=== PATIENT | male | born 1945 | race Caucasian/White ===

== ENCOUNTER 2016-10-26 15:35 | Emergency (ER) | payer OTHER ==
[~2016-10-26] VITALS: Ht 182.9 cm; Wt 105.0 kg
[~2016-10-26 15:35] MED LIST: ALBU8I INH; ALLO300T2 PO; ALPR0.25 PO; AMLO5TAB22 PO; BISA5TAB PO; COLC1TAB7 PO; DUONI NEB; EZET10 PO; FIORIC PO; FOLI1 PO; GABA300C3 PO; GLIP5 PO; HYDR200T3 PO; HYDRO2.5%T TOP; HYOS0.129 PO; IPRAAER INH; LEVO50TA4 PO; METH2.5 PO; MORP60TA20 PO; MULT1TAB PO; PRED50TA PO; PRED5SOL PO; PROP60TA2 PO; RANI150 PO; SERT-129 PO; SYMB160A INH; TAMS0.4C67 PO; VITA100020 IM; WARF1TAB PO; WARF7.5T4 PO; WELL150T PO; ZITH250T PO; ZOLP10TA3 PO
[2016-10-26 15:38] VITALS: BP 147/79; PULSE 70; RESP 24; TEMP 99.1; O2SAT 95
--- NOTE | 2016-10-26 15:54 | PD ---
HPI Chief Complaint: Respiratory Distress Time Seen by Provider: 15:47 Travel History International Travel<30 days: No Contact w/Intl Traveler<30days: No Traveled to known affect area: No History of Present Illness HPI 71yo M with PMH of bladder CA s/p resection, DM, PE on coumadin, COPD, sleep apnea on BIPAP at night presents to the ED with c/o sob and productive cough for 7 days. Denies any fever, chest pain, n/v, abdominal pain, new focal weakness or numbness. Pt was sent from the [place] [facility] for further evaluation. Pt takes symbicort, proventil for COPD but did not take any today. PFSH Past Medical History Hx Anticoagulant Therapy: Yes (VARIABLE CUMIDIN DAILY ) Arthritis: Yes (RHEUMATOID) Asthma: No Autoimmune Disease: Yes ( RHEM. ARTHRITIS) Blood Disorders: No Anxiety: Yes (PTSD) Depression: No Heart Rhythm Problems: No Cancer: Yes (Bladder Cancer, NASAL CANCER) Cardiac Catheterization: No Cardiovascular Problems: Yes High Cholesterol: Yes Chemotherapy: No Chest Pain: No Congestive Heart Failure: No COPD: Yes Coronary Artery Disease: No Diabetes: Yes Diminished Hearing: No Endocrine: Yes Gastrointestinal Disorders: Yes (chrones disease, ulcer) GERD: Yes Gout: Yes Genitourinary: Yes (BPH, bladder cancer, low testosterone) Headaches: No Hepatitis: No Hiatal Hernia: No Hypertension: Yes Immune Disorder: Yes (RA) Implanted Vascular Access Dvce: Yes Kidney Stones: No Musculoskeletal: Yes (chronic neck and back pain, spinal stenosis, gout, RA) Neurologic: Yes (tremors) Psychiatric: Yes Reproductive: No Respiratory: Yes (COPD) Myocardial Infarction: No Radiation Therapy: No Renal Failure: No Sickle Cell Disease: No Sleep Apnea: Yes Thyroid Disease: Yes (Hypothyroidism) Ulcer: Yes (GASTRIC) Past Surgical History Abdominal Surgery: Yes (fistula from stomach to colon- 1986; REPAIR RECTAL TEAR ,UMBILICAL HERNIA) AICD: No Arteriovenous Shunt: No Body Medical Devices: TITANIUM PLATE LEFT WRIST, UPPER DENTURE Cardiac Surgery: No Coronary Artery Bypass Graft: No Ear Surgery: No Endocrine Surgery: No Eye Surgery: No Genitourinary Surgery: Yes (CYSTO-TURBT- X 2) Gynecologic Surgery: No Insulin Pump: No Joint Replacement: No Neurologic Surgery: No Oral Surgery: No Pacemaker: No Thoracic Surgery: No Other Surgery: Yes (LIPOMA FROM BACK) Social History Alcohol Use: No Tobacco Use: Yes (4 CIGS/DAY) Substance Use: No Allergies-Medications (Allergen,Severity, Reaction): Coded Allergies: Sulfa (Verified Allergy, Severe, RASH/HIVES, 09/28/15) Reported Meds & Prescriptions Reported Meds & Active Scripts Active Reported Dicyclomine (Dicyclomine HCl) 20 Mg Tab 20 Mg PO TID Dicyclomine (Dicyclomine HCl) 10 Mg Cap 10 Mg PO QID Coumadin (Warfarin) 10 Mg Tab 10 Mg PO DAILY Coumadin (Warfarin) 5 Mg Tab 5 Mg PO DAILY Topamax (Topiramate) 50 Mg Tab 50 Mg PO BID Tamsulosin (Tamsulosin HCl) 0.4 Mg Cap 0.4 Mg PO HS Sertraline (Sertraline HCl) 100 Mg Tab 100 Mg PO DAILY Propranolol (Propranolol HCl) 80 Mg Tab 80 Mg PO Q12HR Omeprazole 20 Mg Cap Multi Vitamin (Multiple Vitamin) 1 Tab Tab 1 Tab PO DAILY Morphine Sulfate CR (Morphine Sulfate) 15 Mg Tab Methotrexate 2.5 Mg Tab 2.5 Mg PO Q7D Asacol HD (Mesalamine) 800 Mg Tab 1,600 Mg PO TID Swallow whole. Take on an empty stomach. Claritin (Loratadine) 10 Mg Cap 10 Mg PO DAILY Synthroid (Levothyroxine Sodium) 50 Mcg Tab 50 Mcg PO DAILY Plaquenil (Hydroxychloroquine Sulfate) 200 Mg Tab 200 Mg PO BID Take with food Glipizide 5 Mg Tab 5 Mg PO BIDAC Take 30 minutes before a meal Gabapentin 800 Mg Tab 800 Mg PO TID Gabapentin 600 Mg Tab 600 Mg PO BID Zetia (Ezetimibe) 10 Mg Tab 10 Mg PO DAILY Buspirone (Buspirone HCl) 5 Mg Tab 5 Mg PO BID Wellbutrin SR 12 HR (Bupropion HCl) 100 Mg Tab 100 Mg PO Q12HR Spiriva Handihaler (Tiotropium Inh) 18 Mcg Cap 18 Mcg INH DAILY 1 capsule = [address] (Bisacodyl) 5 Mg Tabdr 5 Mg PO DAILY PRN Amlodipine (Amlodipine Besylate) 10 Mg Tab 10 Mg PO DAILY Allopurinol 300 Mg Tab 300 Mg PO DAILY Ventolin Hfa 18 GM Inh (Albuterol Sulfate) 90 Mcg/Act Aer 1 Puff INH Q4H PRN Review of Systems Except as stated in HPI: all other systems reviewed are Neg Physical Exam Narrative GENERAL: 71yo M not in distress. SKIN: Warm and dry. HEAD: Atraumatic. Normocephalic. NECK: Trachea midline. No JVD. CARDIOVASCULAR: Regular rate and rhythm. No murmur appreciated. RESPIRATORY: No accessory muscle use. Coarse breath sounds bilaterally. Saturating at 95% on RA. GASTROINTESTINAL: Abdomen soft, non-tender, nondistended. No rebound tenderness or guarding. MUSCULOSKELETAL: No obvious deformities. No clubbing. No cyanosis. No edema. NEUROLOGICAL: Awake and alert. No obvious cranial nerve deficits. Motor grossly within normal limits. Normal speech. PSYCHIATRIC: Appropriate mood and affect; insight and judgment normal. Data Data Last Documented VS Vital Signs Date Time Temp Pulse Resp B/P Pulse Ox O2 Delivery O2 Flow Rate FiO2 10/26/16 16:09 96 Nasal Cannula 2.00 10/26/16 15:38 99.1 70 24 147/79 Orders Electrocardiogram (10/26/16 ) Complete Blood Count With Diff (10/26/16 15:48) Basic Metabolic Panel (Bmp) (10/26/16 15:48) B-Type Natriuretic Peptide (10/26/16 15:48) Act Partial Throm Time (Ptt) (10/26/16 15:48) Prothrombin Time / Inr (Pt) (10/26/16 15:48) Ckmb (Isoenzyme) Profile (10/26/16 15:48) Troponin I (10/26/16 15:48) Blood Culture (10/26/16 15:48) Iv Access Insert/Monitor (10/26/16 15:48) Ecg Monitoring (10/26/16 15:48) Oximetry (10/26/16 15:48) Oxygen Administration (10/26/16 15:48) Chest, Single Ap (10/26/16 15:48) Sodium Chloride 0.9% Flush (Ns Flush) (10/26/16 16:00) Methylprednisolone So Succ Inj (Solumedr (10/26/16 16:00) Albuterol-Ipratropium Neb (Duoneb Neb) (10/26/16 16:00) CKMB (10/26/16 15:50) CKMB% (10/26/16 15:50) Ct Pulmonary Angiogram (10/26/16 ) Iohexol 350 Inj (Omnipaque 350 Inj) (10/26/16 17:49) Labs Laboratory Tests Test 10/26/16 15:50 White Blood Count 10.2 TH/MM3 Red Blood Count 5.47 MIL/MM3 Hemoglobin 15.6 GM/DL Hematocrit 46.5 % Mean Corpuscular Volume 84.9 FL Mean Corpuscular Hemoglobin 28.5 PG Mean Corpuscular Hemoglobin 33.5 % Concent Red Cell Distribution Width 20.1 % Platelet Count 273 TH/MM3 Mean Platelet Volume 8.2 FL Neutrophils (%) (Auto) 66.2 % Lymphocytes (%) (Auto) 23.8 % Monocytes (%) (Auto) 7.7 % Eosinophils (%) (Auto) 1.8 % Basophils (%) (Auto) 0.5 % Neutrophils # (Auto) 6.8 TH/MM3 Lymphocytes # (Auto) 2.4 TH/MM3 Monocytes # (Auto) 0.8 TH/MM3 Eosinophils # (Auto) 0.2 TH/MM3 Basophils # (Auto) 0.1 TH/MM3 CBC Comment DIFF FINAL Differential Comment Prothrombin Time 45.5 SEC Prothromb Time International 3.9 RATIO Ratio Activated Partial 54.8 SEC Thromboplast Time Sodium Level 141 MEQ/L Potassium Level 4.1 MEQ/L Chloride Level 105 MEQ/L Carbon Dioxide Level 28.7 MEQ/L Anion Gap 7 MEQ/L Blood Urea Nitrogen 11 MG/DL Creatinine 1.19 MG/DL Estimat Glomerular Filtration 61 ML/MIN Rate Random Glucose 101 MG/DL Calcium Level 8.8 MG/DL Total Creatine Kinase 224 U/L Creatine Kinase MB 3.0 NG/ML Troponin I LESS THAN 0.02 NG/ML B-Type Natriuretic Peptide 54 PG/ML [place] Medical Decision Making Medical Screen Exam Complete: Yes Emergency Medical Condition: Yes Interpretation(s) EKG: NSR 68bpm. LAD. Q wave II, III. No ST segment elevation or depression. TWI III. Differential Diagnosis COPD exacerbation vs. pneumonia vs. PE vs. ACS Narrative Course 71yo M with PMH of PE, COPD on home O2 PRN, sleep apnea here with sob for 7 days. Pt is not wheezing but does have coarse breath sounds bilaterally. Labs reviewed, no leukocytosis. Troponin negative. BNP 54. Pt given duonebs x3 and methylprednisolone 125mg IV and does feel better but not completely better. INR is elevated at 3.9. Denies any bleeding, hematemesis or blood in stool. Instructed pt to hold coumadin tonight and call his doctor tomorrow to inform him. CXR showed no acute disease. CT angio showed no evidence of PE. The 10mm nodule abutting the anterior pleura in the right middle lobe is slightly more prominent measuring than previously measured 8mm. Outpatient PET CT scan recommended. Informed pt of this and they will follow up as outpatient. Pt reevaluated at bedside and is saturating at 91-92% on RA. Pt has O2 at home as well. Return precautions given. Diagnosis Primary Impression: COPD with exacerbation Patient Instructions: General Instructions Departure Forms: Tests/Procedures Additional Instructions: Please follow up with your PMD in 1-2 days. Return to the ED if symptoms worsen including chest pain, worsening sob or any bleeding. INR today is 3.9. Please hold tonight's coumadin dose and call your primary care physician tomorrow morning. Med/Other Pt SpecificInfo: Prescription(s) given Scripts Albuterol 18 GM Inh (Ventolin Hfa 18 GM Inh)90 Mcg/Act Aer2 Puff INH Q4H PRN ( SHORTNESS OF BREATH) #1 INHALER Ref 0 Prov:Delmis Gillis DO 10/26/16 Prednisone 20 Mg Tab20 Mg PO BID 5 Days Ref 0 Prov:Delmis Gillis DO 10/26/16 Disposition: 01 DISCHARGE HOME Condition: Stable Delmis Gillis DO Oct 26, 2016 15:54
[2016-10-26] MEDS ORDERED: methylPREDNISolone SOD SUCC 125 MG/2 ML VIAL IVP ONE (16:00)
[2016-10-26] MEDS ORDERED: SODIUM CHLORIDE 0.9% FLUSH 5 ML FLUSH IVF PRN (16:00)
[2016-10-26 16:09] VITALS: O2SAT 96
[2016-10-26] MEDS: RESP: ALBUTEROL 2.5 MG/IPRATROPIUM 0.5 MG NEB (SCH) INH ×2 (16:11→16:12)
--- NOTE | 2016-10-26 16:29 | RADRPT ---
EXAM DATE/TIME: 10/26/2016 16:11 [facility] COMPARISON: CHEST SINGLE AP, September 28, 2015, 9:46. INDICATIONS : Shortness of breath, cough, congestion. MEDICAL HISTORY : Hypertension. Chronic obstructive pulmonary disease. Diabetes mellitus type II. Smoker. SURGICAL HISTORY : None. ENCOUNTER: Initial ACUITY: 1 week PAIN SCORE: 0/10 LOCATION: Bilateral chest FINDINGS: A single view of the chest demonstrates the lungs to be symmetrically aerated without evidence of mas s, infiltrate or effusion. Mild cardiomegaly. The cardiomediastinal contours are unremarkable. Osse ous structures are intact. CONCLUSION: No acute disease. Froilan Collier MD on October 26, 2016 at 16:27 Board Certified Radiologist. This report was verified electronically.
[2016-10-26 16:42] LABS: AUTOMATED NEUTROPHIL # 6.8 TH/MM3 (1.8-7.7); BASOPHIL # 0.1 TH/MM3 (0-0.2); BASOPHIL % 0.5 % (0.0-2.0); EOSINOPHIL # 0.2 TH/MM3 (0-0.4); EOSINOPHIL % 1.8 % (0.0-4.0); HEMATOCRIT 46.5 % (39.0-51.0); HEMO FLAGS DIFF FINAL; LYMPH % 23.8 % (9.0-44.0); LYMPHOCYTE # 2.4 TH/MM3 (1.0-4.8); MEAN CELL VOLUME 84.9 FL (80.0-100.0); MEAN CORPUSCULAR HEMOGLOBIN 28.5 PG (27.0-34.0); MEAN CORPUSCULAR HGB CONC 33.5 % (32.0-36.0); MONO % 7.7 % (0.0-8.0); NEUT % 66.2 % (16.0-70.0); PLATELET COUNT 273 TH/MM3 (150-450); RED BLOOD COUNT 5.47 MIL/MM3 (4.50-5.90); RED CELL DISTRIBUTION WIDTH 20.1 % (11.6-17.2); WHITE BLOOD COUNT 10.2 TH/MM3 (4.0-11.0)
[2016-10-26] MEDS ORDERED: SPIRCAP INH (16:59)
[2016-10-26] MEDS ORDERED: GABA600T PO (16:59)
[2016-10-26] MEDS ORDERED: TOPA50TA7 PO (16:59)
[2016-10-26] MEDS ORDERED: GABA800T PO (16:59)
[2016-10-26] MEDS ORDERED: SERT-129 PO (16:59)
[2016-10-26] MEDS ORDERED: COUM5TAB PO (16:59)
[2016-10-26] MEDS ORDERED: COUM10TA PO (16:59)
[2016-10-26] MEDS ORDERED: OMEP20CA2 (16:59)
[2016-10-26] MEDS ORDERED: MULT-135 PO (16:59)
[2016-10-26] MEDS ORDERED: DICY20TA10 PO (16:59)
[2016-10-26] MEDS ORDERED: PROP80TA PO (16:59)
[2016-10-26] MEDS ORDERED: LEVO.05 PO (16:59)
[2016-10-26] MEDS ORDERED: VENTAER INH ×2 (16:59→18:37)
[2016-10-26] MEDS ORDERED: AMLO10TA2 PO (16:59)
[2016-10-26] MEDS ORDERED: CLAR10CA3 PO (16:59)
[2016-10-26] MEDS ORDERED: BUSP5TAB PO (16:59)
[2016-10-26] MEDS ORDERED: ALLO300T2 PO (16:59)
[2016-10-26] MEDS ORDERED: GLIP5TAB8 PO (16:59)
[2016-10-26] MEDS ORDERED: METH2.5T PO (16:59)
[2016-10-26] MEDS ORDERED: ZETI10TA5 PO (16:59)
[2016-10-26] MEDS ORDERED: DUCO5TAB PO (16:59)
[2016-10-26] MEDS ORDERED: ASAC800T PO (16:59)
[2016-10-26] MEDS ORDERED: PLAQ200T PO (16:59)
[2016-10-26] MEDS ORDERED: DICY10CA12 PO (16:59)
[2016-10-26] MEDS ORDERED: MORP15TA73 (16:59)
[2016-10-26] MEDS ORDERED: TAMS0.4C4 PO (16:59)
[2016-10-26] MEDS ORDERED: BUPR100CR PO (16:59)
[2016-10-26 17:00] LABS: APTT (PATIENT) 54.8 SEC (24.3-30.1); INTERNATIONAL NORMALIZED RATIO 3.9 RATIO; PROTHROMBIN TIME - PATIENT 45.5 SEC (9.8-11.6)
[2016-10-26 17:10] LABS: ANION GAP 7 MEQ/L (5-15); BICARBONATE 28.7 MEQ/L (21.0-32.0); BLOOD UREA NITROGEN 11 MG/DL (7-18); CHLORIDE 105 MEQ/L (98-107); GLOMERULAR FILTRATION RATE 61 ML/MIN (>89); POTASSIUM 4.1 MEQ/L (3.5-5.1); SODIUM (NA) 141 MEQ/L (136-145)
[2016-10-26 17:13] LABS: CREATINE KINASE 224 U/L (39-308)
[2016-10-26] MEDS ORDERED: IOHEXOL 350 MG/ML 10 ML VIAL (for RAD DIAG) IV ONE (17:49)
--- NOTE | 2016-10-26 18:03 | RADRPT ---
EXAM DATE/TIME: 10/26/2016 17:41 [facility] COMPARISON: No previous studies available for comparison. INDICATIONS : Shortness of breath with chest pain; evaluate for pulmonary embolism. IV CONTRAST: 70 cc Omnipaque 350 (iohexol) IV RADIATION DOSE: 18.36 CTDIvol (mGy) MEDICAL HISTORY : Hypertension. Diabetes mellitus type 2. Chronic obstructive pulmonary disease.Bladder cancer. SURGICAL HISTORY : None. ENCOUNTER: Initial ACUITY: 1 day PAIN SCALE: 3/10 LOCATION: chest TECHNIQUE: Volumetric scanning of the chest was performed using a pulmonary embolism protocol MIP images were re constructed. Using automated exposure control and adjustment of the mA and/or kV according to patien t size, radiation dose was kept as low as reasonably achievable to obtain optimal diagnostic quality images. FINDINGS: PULMONARY ARTERIES: No filling defects are seen in the pulmonary arteries through the segmental level. LUNGS: There is no consolidation or pneumothorax . 10 mm nodule along the anterior right middle lobe. PLEURAE: There is no pleural thickening or pleural effusion. MEDIASTINUM: There is good visualization of the great vessels of the middle mediastinum. No evidence of mediastin al or hilar adenopathy/mass. Coronary artery calcifications. MUSCULOSKELETAL: Within normal limits for patient age. MISCELLANEOUS: The visualized upper abdominal organs demonstrate no acute abnormality. CONCLUSION: 1. No evidence for pulmonary embolism. 2. The 10 mm nodule abutting the anterior pleura in the right middle lobe is slightly more prominent measuring and previously measured [address] scan recommended. 3. No infiltrate or mass. 4. Coronary artery calcifications. Froilan Collier MD on October 26, 2016 at 17:57 Board Certified Radiologist. This report was verified electronically.
[2016-10-26] MEDS ORDERED: PRED20 PO (18:37)
--- NOTE | 2016-10-27 18:44 | EKG ---
Date Performed: 10/26/2016 Time Performed: 15:42:45 PTAGE: 71 years EKG: Sinus rhythm MARKED LEFT AXIS DEVIATION ABNORMAL ECG PREVIOUS TRACING : 09/28/2015 09.30 DOCTOR: Justin Valle Interpretating Date/Time 10/27/2016 18:39:29
== END 2016-10-26 19:04 | disposition home or self-care (01) ==
LOC: NEPE 15:35
DX: J44.1 Chronic obstructive pulmonary disease with (acute) exacerbation (principal); E03.9 Hypothyroidism, unspecified; I10 Essential (primary) hypertension; E11.9 Type 2 diabetes mellitus without complications; E78.00 Pure hypercholesterolemia, unspecified; G47.30 Sleep apnea, unspecified; F43.10 Post-traumatic stress disorder, unspecified; Z79.01 Long term (current) use of anticoagulants; Z99.81 Dependence on supplemental oxygen; R94.31 Abnormal electrocardiogram [ECG] [EKG]; R07.9 Chest pain, unspecified
CPT/HCPCS: 71010; 71275; 80048; 82550; 82552; 83880; 84484; 85025; 85610; 85730; 87040; 93005; 94640; 94664; 96374; 99284; J2930; Q9967

== ENCOUNTER 2017-12-31 14:28 | Emergency (ER) | payer OTHER ==
[~2017-12-31] VITALS: Ht 182.9 cm; Wt 102.0 kg
[~2017-12-31 14:28] MED LIST changes: -ALBU8I INH; +ALPH600C PO; -ALPR0.25 PO; +AMLO10TA2 PO; -AMLO5TAB22 PO; +ASAC800T PO; -BISA5TAB PO; +BUPR100CR PO; +BUSP5TAB PO; +BUTA1TAB30 PO; +CLAR10CA3 PO; -COLC1TAB7 PO; +DICY10CA12 PO; +DUCO5TAB PO; -DUONI NEB; -FIORIC PO; -FOLI1 PO; -GABA300C3 PO; +GABA600T PO; +GABA800T PO; -GLIP5 PO; +GLIP5TAB8 PO; -HYDR200T3 PO; -HYDRO2.5%T TOP; -HYOS0.129 PO; +HYOS1TAB9 PO; -IPRAAER INH; +LEVO.05 PO; -LEVO50TA4 PO; +MELA5 PO; -METH2.5 PO; +METH2.5T PO; +MORP1TAB25 PO; -MORP60TA20 PO; -MULT1TAB PO; +MULTTAB67 PO; +OMEP20CA2; +PLAQ200T PO; -PRED50TA PO; -PRED5SOL PO; -PROP60TA2 PO; +PROP80TA PO; -RANI150 PO; +SPIRCAP INH; -SYMB160A INH; +TAMS0.4C4 PO; -TAMS0.4C67 PO; +TOPA50TA7 PO; +VENTAER INH; -VITA100020 IM; +WARF-21 PO; +WARF-23 PO; -WARF1TAB PO; -WARF7.5T4 PO; -WELL150T PO; -ZITH250T PO; -ZOLP10TA3 PO
[2017-12-31 14:34] VITALS: BP 130/60; PULSE 77; RESP 17; TEMP 98.8; O2SAT 97
[2017-12-31] MEDS ORDERED: SODIUM CHLOR 0.9% 1000 ML INJ 1,000 ML IV SCH (14:42)
[2017-12-31] MEDS ORDERED: PROCHLORPERAZINE INJ 10 MG/2 ML VIAL IV PUSH ONE (14:45)
[2017-12-31] MEDS ORDERED: MORPHINE SULFATE 4 MG/ML INJ IV PUSH ONE (14:45)
[2017-12-31] MEDS ORDERED: SODIUM CHLORIDE 0.9% FLUSH 10 ML FLUSH IV FLUSH PRN (14:45)
[2017-12-31 14:57] VITALS: RESP 16; O2SAT 97
[2017-12-31 15:00] VITALS: BP 126/72; PULSE 71; RESP 16; O2SAT 99
[2017-12-31 15:21] LABS: AUTOMATED NEUTROPHIL # 3.8 TH/MM3 (1.8-7.7); BASOPHIL # 0.1 TH/MM3 (0-0.2); BASOPHIL % 0.9 % (0.0-2.0); EOSINOPHIL # 0.3 TH/MM3 (0-0.4); EOSINOPHIL % 4.6 % (0.0-4.0); HEMATOCRIT 48.8 % (39.0-51.0); HEMOGLOBIN 15.7 GM/DL (13.0-17.0); LYMPH % 31.7 % (9.0-44.0); LYMPHOCYTE # 2.2 TH/MM3 (1.0-4.8); MEAN CELL VOLUME 85.8 FL (80.0-100.0); MEAN CORPUSCULAR HEMOGLOBIN 27.6 PG (27.0-34.0); MEAN CORPUSCULAR HGB CONC 32.2 % (32.0-36.0); MEAN PLATELET VOLUME 8.1 FL (7.0-11.0); MONO % 8.3 % (0.0-8.0); MONOCYTE # 0.6 TH/MM3 (0-0.9); NEUT % 54.5 % (16.0-70.0); PLATELET COUNT 265 TH/MM3 (150-450); RED BLOOD COUNT 5.69 MIL/MM3 (4.50-5.90)
[2017-12-31 15:28] LABS: CHLORIDE 108 MEQ/L (98-107); SODIUM (NA) 138 MEQ/L (136-145)
[2017-12-31 15:31] LABS: CALCIUM 8.8 MG/DL (8.5-10.1)
[2017-12-31 15:32] LABS: ALBUMIN 3.6 GM/DL (3.4-5.0); BICARBONATE 22.9 MEQ/L (21.0-32.0); BLOOD UREA NITROGEN 17 MG/DL (7-18); GLUCOSE,RANDOM 102 MG/DL (74-106)
[2017-12-31 15:35] LABS: ALT (GPT) 46 U/L (12-78); AST (GOT) 33 U/L (15-37); GLOMERULAR FILTRATION RATE 55 ML/MIN (>89)
[2017-12-31 15:36] LABS: TOTAL BILIRUBIN ADULT 0.5 MG/DL (0.2-1.0); TOTAL PROTEIN 7.8 GM/DL (6.4-8.2)
[2017-12-31 15:38] LABS: ALKALINE PHOSPHATASE 89 U/L (45-117)
[2017-12-31] MEDS ORDERED: SYMB160A INH (16:01)
[2017-12-31] MEDS ORDERED: ALBU6.7H INH (16:01)
[2017-12-31] MEDS ORDERED: MESA1TAB2 PO (16:01)
[2017-12-31] MEDS ORDERED: ASPI-516 CHEW (16:01)
[2017-12-31] MEDS ORDERED: EZET10 PO (16:01)
[2017-12-31] MEDS ORDERED: OMEP20TA93 PO (16:01)
[2017-12-31] MEDS ORDERED: FOLI400T PO (16:01)
[2017-12-31] MEDS ORDERED: DIATRIZOATE MEGLUM/DIATRIZOATE SOD 9 ML CUP ONE (16:26)
[2017-12-31] MEDS ORDERED: IOHEXOL 350 MG/ML 10 ML VIAL (for RAD DIAG) IVCONTRAST ONE (17:20)
--- NOTE | 2017-12-31 17:20 | PD ---
HPI Chief Complaint: Abdominal Pain Time Seen by Provider: 14:42 Travel History International Travel<30 days: No Contact w/Intl Traveler<30days: No Traveled to known affect area: No History of Present Illness HPI 72-year-old male with history of Crohn's disease, presents today with complaints of severe stabbing sharp pain in his lower abdomen. Patient denies any fevers, chills. There is no reported nausea vomiting diarrhea. The patient reports it as intermittent and stabbing. He reports it as a 9 out of 10 on the pain scale. He says that occasionally the pain will radiate across the lower abdomen from right to left. Patient reports that it was exacerbated by bending over. There is no other reported injury. He denies any history of kidney stones. He denies any history of hematuria. He has had complications with his Crohn's disease where he has had fistulas. PFSH Past Medical History Hx Anticoagulant Therapy: Yes (ASA 81mg) Arthritis: Yes (RHEUMATOID) Asthma: No Autoimmune Disease: Yes ( RHEM. ARTHRITIS) Blood Disorders: No Anxiety: Yes (PTSD) Depression: No Heart Rhythm Problems: No Cancer: Yes (Bladder Cancer, NASAL CANCER) Cardiac Catheterization: No Cardiovascular Problems: Yes (HTN, high chol) High Cholesterol: Yes Chemotherapy: No Chest Pain: No Congestive Heart Failure: No COPD: Yes Coronary Artery Disease: No Diabetes: Yes Patient Takes Glucophage: Yes (GLIPIZIDE) Diminished Hearing: No Endocrine: Yes Gastrointestinal Disorders: Yes (chrones disease, ulcer) GERD: Yes Gout: Yes Genitourinary: Yes (BPH, bladder cancer, low testosterone) Headaches: No Hepatitis: No Hiatal Hernia: No Hypertension: Yes Immune Disorder: Yes (RA) Implanted Vascular Access Dvce: Yes Kidney Stones: No Musculoskeletal: Yes (chronic neck and back pain, spinal stenosis, gout, RA) Neurologic: Yes (tremors) Psychiatric: Yes Reproductive: No Respiratory: Yes (COPD) Myocardial Infarction: No Radiation Therapy: No Renal Failure: No Sickle Cell Disease: No Sleep Apnea: Yes Thyroid Disease: Yes (Hypothyroidism) Ulcer: Yes (GASTRIC) Tetanus Vaccination: < 5 Years Influenza Vaccination: Yes Past Surgical History Abdominal Surgery: Yes (fistula from stomach to colon- 1986; REPAIR RECTAL TEAR ,UMBILICAL HERNIA) AICD: No Arteriovenous Shunt: No Body Medical Devices: TITANIUM PLATE LEFT WRIST, UPPER DENTURE Cardiac Surgery: No Coronary Artery Bypass Graft: No Ear Surgery: No Endocrine Surgery: No Eye Surgery: No Genitourinary Surgery: Yes (CYSTO-TURBT- X 2, tumor removed from bladder) Gynecologic Surgery: No Insulin Pump: No Joint Replacement: No Neurologic Surgery: No Oral Surgery: No Pacemaker: No Thoracic Surgery: No Other Surgery: Yes (LIPOMA FROM BACK/UMBILICAL HERNIA) Family History Family Myocardial Infarction: Yes (DAD) Social History Alcohol Use: No Tobacco Use: Yes (3/4 CIGS/DAY) Substance Use: No Allergies-Medications (Allergen,Severity, Reaction): Coded Allergies: Sulfa (Sulfonamide Antibiotics) (Unverified Allergy, Severe, RASH/HIVES, ) Reported Meds & Prescriptions Reported Meds & Active Scripts Active Lorcet Plus 7.5-325 mg (Hydrocodone-Acetaminophen) 7.5 Mg-325 Mg Tab 1 Tab PO Q6H PRN Ventolin Hfa 18 GM Inh (Albuterol Sulfate) 90 Mcg/Act Aer 2 Puff INH Q4H PRN Reported Aspirin 81 Mg Chew 81 Mg CHEW DAILY Omeprazole 20 Mg Tab 20 Mg PO BID Mesalamine DR (Mesalamine) 800 Mg Tab 375 Mg PO DAILY Folic Acid 0.4 Mg Tab 1 Mg PO DAILY Zetia (Ezetimibe) 10 Mg Tab 10 Mg PO DAILY Proventil Hfa 6.7 GM Inh (Albuterol Sulfate) 90 Mcg/Act Aer 1 Puff INH Q6H PRN Symbicort Inh (Budesonide/Formoterol Fumarate) 160-4.5 Mcg/Act Aero 2 Puff INH Q12HR Hyoscyamine (Hyoscyamine Sulfate) 0.125 Mg Tab 0.125 Mg PO Q6H Butalbital-Acetaminophen 50-325 Mg Tab 1 Tab PO Q4HR PRN Do not exceed 6 tablets per day. Alpha Lipoic Acid 600 Mg Cap 600 Mg PO DIRECTED Melatonin 5 Mg Tab 3 Mg PO HS Multiple Vitamin 1 Tab 1 Tab PO DAILY Gabapentin 800 Mg Tab 800 Mg PO HS Morphine ER (Morphine Sulfate) 30 Mg Tab 30 Mg PO BID Dicyclomine (Dicyclomine HCl) 10 Mg Cap 10 Mg PO QID Topamax (Topiramate) 50 Mg Tab 50 Mg PO BID Tamsulosin (Tamsulosin HCl) 0.4 Mg Cap 0.4 Mg PO HS Sertraline (Sertraline HCl) 100 Mg Tab 100 Mg PO DAILY Propranolol (Propranolol HCl) 80 Mg Tab 80 Mg PO Q12HR Methotrexate 2.5 Mg Tab 2.5 Mg PO Q7D Claritin (Loratadine) 10 Mg Cap 10 Mg PO DAILY Synthroid (Levothyroxine Sodium) 50 Mcg Tab 50 Mcg PO DAILY Plaquenil (Hydroxychloroquine Sulfate) 200 Mg Tab 200 Mg PO BID Take with food Glipizide 5 Mg Tab 5 Mg PO BIDAC Take 30 minutes before a meal Gabapentin 600 Mg Tab 600 Mg PO BID Buspirone (Buspirone HCl) 5 Mg Tab 5 Mg PO BID Wellbutrin SR 12 HR (Bupropion HCl) 100 Mg Tab 100 Mg PO Q12HR Spiriva Handihaler (Tiotropium Inh) 18 Mcg Cap 18 Mcg INH DAILY 1 capsule = [address] (Bisacodyl) 5 Mg Tabdr 5 Mg PO DAILY PRN Amlodipine (Amlodipine Besylate) 10 Mg Tab 10 Mg PO DAILY Allopurinol 300 Mg Tab 300 Mg PO DAILY Ventolin Hfa 18 GM Inh (Albuterol Sulfate) 90 Mcg/Act Aer 1 Puff INH Q4H PRN Review of Systems Except as stated in HPI: all other systems reviewed are Neg General / Constitutional: No: Fever, Chills HENT: No: Headaches, Neck Pain Cardiovascular: No: Chest Pain or Discomfort, Irregular Rhythm Respiratory: No: Cough, Shortness of Breath Gastrointestinal: No: Nausea, Vomiting, Abdominal Pain Genitourinary: No: Urgency, Frequency, Flank Pain Musculoskeletal: No: Weakness, Pain Neurologic: No: Weakness, Dizziness, Headache Physical Exam Narrative GENERAL: Well developed well-nourished male in no acute respiratory distress. SKIN: Focused skin assessment warm/dry. HEAD: Atraumatic. Normocephalic. EYES: No scleral icterus. No injection or drainage. ENT: No nasal bleeding or discharge. Mucous membranes pink and moist. NECK: Trachea midline. Supple. CARDIOVASCULAR: Regular rate and rhythm. No murmur appreciated. RESPIRATORY: No accessory muscle use. Clear to auscultation. Breath sounds equal bilaterally. GASTROINTESTINAL: Abdomen soft, non-tender, nondistended. No rebound or guarding. There is no reproducible pain patient states the pain is deeper and comes and goes. MUSCULOSKELETAL: No obvious deformities. No clubbing. No cyanosis. No edema. NEUROLOGICAL: Awake and alert. No obvious cranial nerve deficits. Motor grossly within normal limits. Normal speech. Data Data Last Documented VS Vital Signs Date Time Temp Pulse Resp B/P (MAP) Pulse Ox O2 Delivery O2 Flow Rate FiO2 12/31/17 18:13 63 18 123/65 (84) 95 Room Air 12/31/17 14:34 98.8 Orders Orders Urinalysis - C+S If Indicated (12/31/17 14:36) Complete Blood Count With Diff (12/31/17 14:42) Comprehensive Metabolic Panel (12/31/17 14:42) Lipase (12/31/17 14:42) Iv Access Insert/Monitor (12/31/17 14:42) Ecg Monitoring (12/31/17 14:42) Oximetry (12/31/17 14:42) Morphine Inj (Morphine Inj) (12/31/17 14:45) Sodium Chlor 0.9% 1000 Ml Inj (Ns 1000 M (12/31/17 14:42) Sodium Chloride 0.9% Flush (Ns Flush) (12/31/17 14:45) Prochlorperazine Inj (Compazine Inj) (12/31/17 14:45) Diatrizoate Liq ( Gastroview Liq) (12/31/17 16:26) Ct Abd/Pel W Iv Contrast(Rout) (12/31/17 16:28) Oral Contrast - Adult (12/31/17 17:04) Iohexol 350 Inj (Omnipaque 350 Inj) (12/31/17 17:20) Urine Culture (12/31/17 18:10) Hydromorphone Pf Inj (Dilaudid Pf Inj) (12/31/17 19:00) Acetamin-Hydrocod 325-7.5 Mg ([place] 7.5 (12/31/17 19:00) Labs Laboratory Tests Test 12/31/17 15:05 12/31/17 18:10 White Blood Count 7.0 TH/MM3 Red Blood Count 5.69 MIL/MM3 Hemoglobin 15.7 GM/DL Hematocrit 48.8 % Mean Corpuscular Volume 85.8 FL Mean Corpuscular Hemoglobin 27.6 PG Mean Corpuscular Hemoglobin Concent 32.2 % Red Cell Distribution Width 17.0 % Platelet Count 265 TH/MM3 Mean Platelet Volume 8.1 FL Neutrophils (%) (Auto) 54.5 % Lymphocytes (%) (Auto) 31.7 % Monocytes (%) (Auto) 8.3 % Eosinophils (%) (Auto) 4.6 % Basophils (%) (Auto) 0.9 % Neutrophils # (Auto) 3.8 TH/MM3 Lymphocytes # (Auto) 2.2 TH/MM3 Monocytes # (Auto) 0.6 TH/MM3 Eosinophils # (Auto) 0.3 TH/MM3 Basophils # (Auto) 0.1 TH/MM3 CBC Comment DIFF FINAL Differential Comment Blood Urea Nitrogen 17 MG/DL Creatinine 1.30 MG/DL Random Glucose 102 MG/DL Total Protein 7.8 GM/DL Albumin 3.6 GM/DL Calcium Level 8.8 MG/DL Alkaline Phosphatase 89 U/L Aspartate Amino Transf (AST/SGOT) 33 U/L Alanine Aminotransferase (ALT/SGPT) 46 U/L Total Bilirubin 0.5 MG/DL Sodium Level 138 MEQ/L Potassium Level 4.0 MEQ/L Chloride Level 108 MEQ/L Carbon Dioxide Level 22.9 MEQ/L Anion Gap 7 MEQ/L Estimat Glomerular Filtration Rate 55 ML/MIN Lipase 221 U/L Urine Color YELLOW Urine Turbidity CLEAR Urine pH 6.0 Urine Specific [place] LESS/EQUAL 1.005 Urine Protein NEG mg/dL Urine Glucose (UA) NEG mg/dL Urine Ketones NEG mg/dL Urine Occult Blood NEG Urine Nitrite NEG Urine Bilirubin NEG Urine Urobilinogen 0.2 MG/DL Urine Leukocyte Esterase NEG Urine RBC 0-3 /hpf Urine WBC 6-8 /hpf Urine WBC Clumps MOD Urine Squamous Epithelial Cells 0-5 /hpf Microscopic Urinalysis Comment CULTURE INDICATED MDM Medical Decision Making Medical Screen Exam Complete: Yes Emergency Medical Condition: Yes Differential Diagnosis Renal calculus versus partial bowel obstruction versus fistula Narrative Course 9-year-old male with history Crohn's disease, diabetes mellitus, 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 Patient has no reproducible pain on exam. White count is within normal limits. Urinalysis shows no evidence of acute infection or red blood cells. CT scan shows no acute process. He does have chronic conditions that have not changed. I discussed findings with the patient said that at this time the pain could possibly be caused by adhesions. There is no evidence of bowel obstruction at this time. Discussion was that if pain continues, he should follow-up with his primary care doctor or surgeon for possible evaluation for possible adhesions. He is instructed return to be develops any worsening symptoms i.e. fevers, chills, or any other recent concerns him. Diagnosis Primary Impression: Intermittent abdominal pain Additional Impressions: History of Crohn's disease History of diabetes mellitus Additional Instructions: Return as needed. Avoid alcohol or driving while taking pain medicine. Hope with primary physician or surgeon if pain continues. Med/Other Pt SpecificInfo: Prescription(s) given Scripts Hydrocodone-Acetaminophen (Lorcet Plus 7.5-325 mg) 7.5 Mg-325 Mg Tab 1 TAB PO Q6H Y for PAIN, #20 TAB 0 Refills Prov: Satnam Dodd MD 12/31/17 Disposition: 01 DISCHARGE HOME Condition: Stable Satnam Dodd MD December 31, 2017 17:20
[2017-12-31 18:13] VITALS: BP 123/65; PULSE 63; RESP 18; O2SAT 95
[2017-12-31] MEDS ORDERED: HYDROmorphone HCL PF 2 MG/ML VIAL IVS ONE (18:15)
--- NOTE | 2017-12-31 18:17 | RADRPT ---
EXAM DATE/TIME: 12/31/2017 17:32 [place] COMPARISON: CT ABDOMEN & PELVIS W CONTRAST, July 22, 2014, 22:36. INDICATIONS : Right lower abdomen pain for two days. IV CONTRAST: 91 cc Omnipaque 350 (iohexol) IV ORAL CONTRAST: Prescribed oral contrast ingested. RADIATION DOSE: 17.13 CTDIvol (mGy) MEDICAL HISTORY : Gastroesophageal reflux disease. Carcinoma, bladder. Deep venous thrombosis. SURGICAL HISTORY : Umbilical hernia repair. bladder surgery, rectal tear repair ENCOUNTER: Initial ACUITY: 2 days PAIN SCALE: 9/10 LOCATION: Right lower quadrant TECHNIQUE: Volumetric scanning of the abdomen and pelvis was performed. Using automated exposure control and ad justment of the mA and/or kV according to patient size, radiation dose was kept as low as reasonably achievable to obtain optimal diagnostic quality images. DICOM format image data is available electro nically for review and comparison. FINDINGS: LOWER LUNGS: 5 mm pleural-based pulmonary nodule right middle lobe unchanged from 2014. Lung bases are grossly juan miguel ar. LIVER: Homogeneous density without lesion. There is no dilation of the biliary tree. No calcified gallston es. SPLEEN: Normal size without lesion. PANCREAS: Within normal limits. KIDNEYS: Normal in size and shape. There is no mass, stone or hydronephrosis. Stable scarring along the lower pole left kidney. There is a 2.8 cm cyst along the lower pole left kidney. There is a 1.3 cm cyst al paola the lower pole the right kidney. ADRENAL GLANDS: Stable 1.8 cm right adrenal adenoma. Left adrenal gland is unremarkable. VASCULAR: There is no aortic aneurysm. BOWEL/MESENTERY: The stomach, small bowel, and colon demonstrate no acute abnormality. There is no free intraperitone al air or fluid. The appendix is unremarkable. No inflammatory changes. ABDOMINAL WALL: Within normal limits. RETROPERITONEUM: There is no lymphadenopathy. BLADDER: No wall thickening or mass. No bladder stones. REPRODUCTIVE: Within normal limits. INGUINAL: There is no lymphadenopathy or hernia. MUSCULOSKELETAL: Within normal limits for patient age. No significant change compared to 2014. CONCLUSION: 1. There are bilateral benign-appearing renal cysts. 2. Stable 1.8 cm right adrenal adenoma. 3. Stable 5 mm pleural-based pulmonary nodule right middle lobe. 4. No acute pathology. No significant changes compared to 2013. Raúl Herrera MD on December 31, 2017 at 18:09 Board Certified Radiologist. This report was verified electronically.
[2017-12-31 18:33] LABS: BILIRUBIN, URINE NEG (NEG); BLOOD, URINE NEG (NEG); GLUCOSE,URINE NEG (NEG); KETONE, URINE NEG (NEG); NITRITE,URINE NEG (NEG); URINE COLOR YELLOW (YELLW/STRAW); URINE LEUKOCYTE ESTERASE NEG (NEG)
[2017-12-31 18:43] LABS: RBC, URINE 0-3 /hpf (0-3); SQUAMOUS EPITHELIAL CELL URINE 0-5 /hpf (0-5); WHITE BLOOD CELL CLUMPS MOD
[2017-12-31] MEDS ORDERED: HYDR-3577 PO (18:47)
[2017-12-31] MEDS ORDERED: MACR100C2 PO (18:52)
[2017-12-31] MEDS ORDERED: HYDROmorphone HCL PF 4 MG/ML VIAL IV PUSH ONE (19:00)
[2017-12-31] MEDS ORDERED: ACETAMINOPHEN/HYDROcodone 325 MG/7.5 MG TAB PO ONE (19:00)
[2017-12-31 19:05] VITALS: BP 123/76
== END 2017-12-31 19:18 | disposition home or self-care (01) ==
LOC: PHED 14:28
DX: R10.9 Unspecified abdominal pain (principal); K50.90 Crohn's disease, unspecified, without complications; E11.9 Type 2 diabetes mellitus without complications; N28.1 Cyst of kidney, acquired; D35.01 Benign neoplasm of right adrenal gland; R91.1 Solitary pulmonary nodule; I10 Essential (primary) hypertension; E78.00 Pure hypercholesterolemia, unspecified; J44.9 Chronic obstructive pulmonary disease, unspecified; M06.9 Rheumatoid arthritis, unspecified; N40.0 Benign prostatic hyperplasia without lower urinary tract symptoms; E03.9 Hypothyroidism, unspecified; F43.10 Post-traumatic stress disorder, unspecified; F17.210 Nicotine dependence, cigarettes, uncomplicated; Z85.51 Personal history of malignant neoplasm of bladder; Z88.2 Allergy status to sulfonamides; Z79.84 Long term (current) use of oral hypoglycemic drugs; Z79.899 Other long term (current) drug therapy; Z79.82 Long term (current) use of aspirin
CPT/HCPCS: 74177; 80053; 81001; 83690; 85025; 87086; 96361; 96374; 96375; 99284; J0780; J2270; J7030; Q9963; Q9967